=== PATIENT | male | born 1950 | race Caucasian/White ===

== ENCOUNTER 2016-06-21 10:55 | Inpatient (IN) | payer OTHER ==
[~2016-06-21] VITALS: Ht 180.3 cm; Wt 123.5 kg
[2016-06-21] MEDS ORDERED: ATORVASTATIN CA80 MG PO (11:17)
[2016-06-21] MEDS ORDERED: DILTIAZEM 24HR360 M1 PO (11:18)
[2016-06-21] MEDS ORDERED: WARFARIN SODIUM5 MG PO (11:19)
[2016-06-21] MEDS ORDERED: LISINOPRIL20 MG PO (11:19)
[2016-06-21] MEDS ORDERED: ULORIC80 MG PO (11:19)
[2016-06-21] MEDS ORDERED: SPIRIVA1 INHALATI IH (11:20)
[2016-06-21] MEDS ORDERED: POTASSIUM CHLO20 ME1 PO (11:20)
[2016-06-21] MEDS ORDERED: ADVAIR 500/501 DISK IH ×2 (11:20→11:22)
[2016-06-21 11:49] LABS: EOSINOPHIL (%) 0.8 % (0-5); HEMATOCRIT 33.9 % (38.0-50.0); IMMATURE GRANULOCYTE (%) 0.4 % (0.0-0.7); INSTRUMENT ABS NEUTROPHIL CT 4.2 K/uL; LYMPHOCYTE COUNT 0.3 K/uL (1.0-2.8); MCH 30.9 PG (29.0-34.0); MCHC 31.3 G/DL (30.0-36.0); MCV 98.8 FL (86-99); MEAN PLAT.VOLUME 9.7 uM^3 (9.0-12.4); MONOCYTE (%) 8.2 % (3-12); MONOCYTE COUNT 0.4 K/uL (0-0.8); NEUTROPHIL (%) 84.4 % (45-76); NEUTROPHIL COUNT 4.2 K/uL (1.8-6.4); PLATELET COUNT 127 K/uL (156-360); RBC DIS.WIDTH-CV 15.4 % (11.8-14.6); RBC DIS.WIDTH-SD 55.8 % (39-53); RED BLOOD COUNT 3.43 M/uL (4.00-5.50)
[2016-06-21 11:59] LABS: CHLORIDE 99 mEq/L (99-109); POTASSIUM 4.7 mEq/L (3.7-5.4); SODIUM 141 mEq/L (136-147)
[2016-06-21 12:01] LABS: GLUCOSE 129 mg/dL (70-99)
[2016-06-21 12:02] LABS: ANION GAP 10 MEQ/L (2-14)
[2016-06-21 12:05] LABS: ALKALINE PHOSPHATASE 59 IU/L (3-129); GFR ESTIMATE (CALCULATED) 54 mL/min/
[2016-06-21 12:06] LABS: UREA NITROGEN (BUN) 46 mg/dL (9-23)
[2016-06-21 12:11] LABS: TROP-I INTERPRETATION NEGATIVE; TROPONIN-I 0.01 ng/mL (0.0-0.30)
[2016-06-21 16:15] VITALS: BP 149/88
[2016-06-21 16:35] LABS: HDL CHOLESTEROL 80 MG/DL (Desirable>=40); LDL CHOLESTEROL 92 mg/dL (Desirable<100); MAGNESIUM 1.2 mg/dl (1.3-2.7); NON-HDL CHOLESTEROL 132 mg/dL (Desirable<160); TOTAL CHOLESTEROL 212 mg/dL (Desirable<200); TRIGLYCERIDES 200 MG/DL (Normal: <150)
[2016-06-21 16:42] LABS: INTER. NORMALIZED RATIO 3.1; PROTHROMBIN TIME 32.8 (9.2-11.2)
[2016-06-21 21:30] VITALS: BP 140/78
[2016-06-22] VITALS (7 sets, daily range): BP systolic 97–145; BP diastolic 46–93
[2016-06-22 06:27] LABS: HEMATOCRIT 30.3 % (38.0-50.0); MCH 31.1 PG (29.0-34.0); MCHC 31.4 G/DL (30.0-36.0); MCV 99.3 FL (86-99); MEAN PLAT.VOLUME 10.1 uM^3 (9.0-12.4); PLATELET COUNT 123 K/uL (156-360); RBC DIS.WIDTH-CV 15.1 % (11.8-14.6); RBC DIS.WIDTH-SD 54.6 % (39-53); RED BLOOD COUNT 3.05 M/uL (4.00-5.50); WHITE BLOOD COUNT 4.3 K/uL (4.1-10.2)
[2016-06-22 06:40] LABS: INTER. NORMALIZED RATIO 2.4; PROTHROMBIN TIME 25.4 (9.2-11.2)
[2016-06-22 06:51] LABS: ALKALINE PHOSPHATASE 49 IU/L (3-129); ANION GAP 10 MEQ/L (2-14); CHLORIDE 98 MEQ/L (99-109); GFR ESTIMATE (CALCULATED) 43 mL/min/; SAMPLE HEMOLYSIS CHECK 0; SAMPLE ICTERIC CHECK 0; SAMPLE LIPEMIA CHECK 0; SODIUM 140 MEQ/L (136-147); TOTAL BILIRUBIN 0.5 MG/DL (0.0-1.0); UREA NITROGEN (BUN) 52 mg/dL (9-23)
[2016-06-22 06:52] LABS: GLUCOSE 227 mg/dL (70-99)
[2016-06-22] MEDS ORDERED: COUMADIN5 MG PO (11:59)
[2016-06-22] MEDS ORDERED: COUMADIN2.5 MG PO (11:59)
[2016-06-22] MEDS ORDERED: LASIX40 MG PO (12:00)
[2016-06-22] MEDS ORDERED: PROVENTIL,2.5 MG/3 M IH (12:00)
[2016-06-22] MEDS ORDERED: VENTOLIN HFA18 GM IH (12:00)
[2016-06-22] MEDS ORDERED: ALEVE220 MG PO (12:01)
[2016-06-22 16:59] LABS: BASE EXCESS 4.3 mEq/L (-3 to +3); BICARBONATE 30.2 mEq/L (22-26); CARBOXY HGB 0.4 % (0-5); DEVICE NC; METHEMOGLOBIN 0.8 % (0-1.5); O2 FLOW 3 L/MIN; PCO2 51 mm Hg (35-45); PO2 88 mm Hg (80-100); SITE RB; TOTAL RESP RATE 18 resp/min; pH 7.38 (7.35-7.45)
[2016-06-22 22:32] LABS: UR CREATININE CONCENTRATION 162.8 MG/DL
[2016-06-23] VITALS (8 sets, daily range): BP systolic 101–150; BP diastolic 55–76
[2016-06-23 07:28] LABS: INTER. NORMALIZED RATIO 2.3; PROTHROMBIN TIME 24.1 (9.2-11.2)
[2016-06-23 07:31] LABS: ANION GAP 10 MEQ/L (2-14); CHLORIDE 98 MEQ/L (99-109); GFR ESTIMATE (CALCULATED) 34 mL/min/; GLUCOSE 245 mg/dL (70-99); GLUCOSE 246 mg/dL (70-99); POTASSIUM 4.9 MEQ/L (3.7-5.4); SAMPLE HEMOLYSIS CHECK 0; SAMPLE ICTERIC CHECK 0; SAMPLE LIPEMIA CHECK 0; SODIUM 138 MEQ/L (136-147); UREA NITROGEN (BUN) 68 mg/dL (9-23); UREA NITROGEN (BUN) 69 mg/dL (9-23)
[2016-06-23 07:32] LABS: EOSINOPHIL (%) 0 % (0-5); HEMATOCRIT 28.8 % (38.0-50.0); IMMATURE GRANULOCYTE (%) 0.8 % (0.0-0.7); IMMATURE GRANULOCYTE COUNT 0.1 K/uL; INSTRUMENT ABS NEUTROPHIL CT 9.4 K/uL; LYMPHOCYTE COUNT 0.1 K/uL (1.0-2.8); MCHC 30.9 G/DL (30.0-36.0); MCV 100.3 FL (86-99); MEAN PLAT.VOLUME 10.5 uM^3 (9.0-12.4); MONOCYTE (%) 1.5 % (3-12); MONOCYTE COUNT 0.2 K/uL (0-0.8); NEUTROPHIL (%) 96.5 % (45-76); NEUTROPHIL COUNT 9.4 K/uL (1.8-6.4); PLATELET COUNT 134 K/uL (156-360); RBC DIS.WIDTH-SD 55.7 % (39-53); RED BLOOD COUNT 2.87 M/uL (4.00-5.50)
[2016-06-23 07:42] LABS: WHITE BLOOD COUNT 9.7 K/uL (4.1-10.2)
[2016-06-24 03:48] VITALS: BP 106/62
[2016-06-24 04:48] LABS: EOSINOPHIL (%) 0 % (0-5); HEMATOCRIT 30.4 % (38.0-50.0); IMM.RETIC FRACTION 14.1 % (3-19); IMMATURE GRANULOCYTE (%) 0.7 % (0.0-0.7); IMMATURE GRANULOCYTE COUNT 0.1 K/uL; LYMPHOCYTE COUNT 0.1 K/uL (1.0-2.8); MCH 30.6 PG (29.0-34.0); MCHC 30.6 G/DL (30.0-36.0); MEAN PLAT.VOLUME 9.7 uM^3 (9.0-12.4); MONOCYTE (%) 1.8 % (3-12); MONOCYTE COUNT 0.2 K/uL (0-0.8); NEUTROPHIL (%) 96.6 % (45-76); PLATELET COUNT 139 K/uL (156-360); RBC DIS.WIDTH-CV 15.3 % (11.8-14.6); RBC DIS.WIDTH-SD 55.8 % (39-53); RED BLOOD COUNT 3.04 M/uL (4.00-5.50); RETIC HGB EQUIVALENT 34.6 (28-36); RETICULOCYTE COUNT 1.9 % (0.5-1.8); WHITE BLOOD COUNT 11.4 K/uL (4.1-10.2)
[2016-06-24 04:58] LABS: INTER. NORMALIZED RATIO 2.3; PROTHROMBIN TIME 24.3 (9.2-11.2)
[2016-06-24 05:03] LABS: CHLORIDE 97 mEq/L (99-109); POTASSIUM 5.1 mEq/L (3.7-5.4); SODIUM 135 mEq/L (136-147)
[2016-06-24 05:06] LABS: GLUCOSE 338 mg/dL (70-99)
[2016-06-24 05:07] LABS: ANION GAP 11 MEQ/L (2-14)
[2016-06-24 05:09] LABS: ALKALINE PHOSPHATASE 39 IU/L (3-129)
[2016-06-24 05:10] LABS: UREA NITROGEN (BUN) 95 mg/dL (9-23)
[2016-06-24 05:13] LABS: GFR ESTIMATE (CALCULATED) 25 mL/min/; TOTAL BILIRUBIN 0.3 mg/dL (0.0-1.0)
[2016-06-24 05:23] LABS: ADD MIUA? NO; BILIRUBIN NEGATIVE; BLOOD NEGATIVE; COLOR YELLOW ((YELLOW)); GLUCOSE (STRIP) NEGATIVE; KETONES NEGATIVE; LEUKOCYTES NEGATIVE; NITRITE NEGATIVE; PROTEIN (STRIP) NEGATIVE; SPECIFIC GRAVITY 1.013 (1.000-1.030); UCUL ADDED? NO; UROBILINOGEN 0.2 MG/DL (0.2-1.0)
[2016-06-24 06:08] LABS: IRON 45 MCG/DL (35-150)
[2016-06-24 07:13] LABS: Estimated Average Glucose 146 mg/dL (70-123); HEMOGLOBIN A1c (GLYCOHEMOGLOB) 6.7 % HGB (Below 5.7)
[2016-06-24 07:46] LABS: INTACT PARATHYROID HORMONE 185 pg/mL (10-69)
[2016-06-24 08:02] LABS: FERRITIN 287 NG/ML (22-322)
[2016-06-24 08:52] VITALS: BP 97/65
[2016-06-24 12:40] VITALS: BP 101/66
[2016-06-24 17:05] LABS: GLUCOSE 384 mg/dL (70-99)
[2016-06-24 17:22] VITALS: BP 121/61
[2016-06-24 20:20] VITALS: BP 123/74
[2016-06-24 23:07] VITALS: BP 119/66
[2016-06-25 03:02] VITALS: BP 154/81
[2016-06-25 06:40] LABS: EOSINOPHIL (%) 0 % (0-5); HEMATOCRIT 30.9 % (38.0-50.0); IMMATURE GRANULOCYTE (%) 1.4 % (0.0-0.7); IMMATURE GRANULOCYTE COUNT 0.2 K/uL; INSTRUMENT ABS NEUTROPHIL CT 9.9 K/uL; LYMPHOCYTE COUNT 0.2 K/uL (1.0-2.8); MCH 31.5 PG (29.0-34.0); MCHC 31.4 G/DL (30.0-36.0); MCV 100.3 FL (86-99); MEAN PLAT.VOLUME 9.8 uM^3 (9.0-12.4); MONOCYTE COUNT 0.7 K/uL (0-0.8); NEUTROPHIL COUNT 9.9 K/uL (1.8-6.4); PLATELET COUNT 144 K/uL (156-360); RBC DIS.WIDTH-CV 15.4 % (11.8-14.6); RBC DIS.WIDTH-SD 56.6 % (39-53); RED BLOOD COUNT 3.08 M/uL (4.00-5.50); WHITE BLOOD COUNT 10.9 K/uL (4.1-10.2)
[2016-06-25 06:49] LABS: INTER. NORMALIZED RATIO 2.5; PROTHROMBIN TIME 25.9 (9.2-11.2)
[2016-06-25 07:16] LABS: ANION GAP 9 MEQ/L (2-14); CHLORIDE 97 MEQ/L (99-109); GFR ESTIMATE (CALCULATED) 25 mL/min/; GLUCOSE 296 mg/dL (70-99); POTASSIUM 5.4 MEQ/L (3.7-5.4); SAMPLE HEMOLYSIS CHECK 0; SAMPLE ICTERIC CHECK 0; SAMPLE LIPEMIA CHECK 0; SODIUM 136 MEQ/L (136-147)
[2016-06-25 07:17] LABS: UREA NITROGEN (BUN) 106 mg/dL (9-23)
[2016-06-25 07:50] VITALS: BP 123/72
[2016-06-25 08:49] LABS: BASE EXCESS 2.4 mEq/L (-3 to +3); BICARBONATE 31.1 mEq/L (22-26); CARBOXY HGB 0.6 % (0-5); METHEMOGLOBIN 0.7 % (0-1.5); PO2 85 mm Hg (80-100)
[2016-06-25 08:50] LABS: COMMENTS - BLOOD GASES A+C+; DEVICE NC; O2 FLOW 2.5 L/MIN; PCO2 71 mm Hg (35-45); SITE RR; pH 7.25 (7.35-7.45)
[2016-06-25 11:01] VITALS: BP 117/64
[2016-06-25 12:04] LABS: BICARBONATE 30.8 mEq/L (22-26); CARBOXY HGB 0.9 % (0-5); COMMENTS - BLOOD GASES A+C+; DEVICE NC; METHEMOGLOBIN 0.8 % (0-1.5); O2 FLOW 1 L/MIN; PCO2 64 mm Hg (35-45); PO2 67 mm Hg (80-100); SITE RR; pH 7.29 (7.35-7.45)
[2016-06-25 13:23] LABS: POINT-OF-CARE METER ID UU14162508
[2016-06-25 14:41] VITALS: BP 114/61
[2016-06-25 19:56] VITALS: BP 124/77
[2016-06-25 23:09] LABS: POINT-OF-CARE METER ID UU14174216
[2016-06-25 23:18] VITALS: BP 117/72
[2016-06-26 04:18] VITALS: BP 116/83
[2016-06-26 05:56] LABS: INTER. NORMALIZED RATIO 2.5; PROTHROMBIN TIME 26.4 (9.2-11.2)
[2016-06-26 06:17] LABS: ANION GAP 7 MEQ/L (2-14); CHLORIDE 103 MEQ/L (99-109); GFR ESTIMATE (CALCULATED) 34 mL/min/; GLUCOSE 206 mg/dL (70-99); POTASSIUM 5.3 MEQ/L (3.7-5.4); SAMPLE HEMOLYSIS CHECK 0; SAMPLE ICTERIC CHECK 0; SAMPLE LIPEMIA CHECK 0; SODIUM 139 MEQ/L (136-147)
[2016-06-26 06:18] LABS: UREA NITROGEN (BUN) 106 mg/dL (9-23)
[2016-06-26 08:03] VITALS: BP 145/64
[2016-06-26 10:15] LABS: BASE EXCESS 1.3 mEq/L (-3 to +3); BICARBONATE 28.9 mEq/L (22-26); PCO2 60 mm Hg (35-45); PO2 80 mm Hg (80-100)
[2016-06-26 10:16] LABS: pH 7.29 (7.35-7.45)
[2016-06-26 10:18] LABS: COMMENTS - BLOOD GASES A+C+; DEVICE NC; O2 FLOW 1 L/MIN; SITE RRA; TOTAL RESP RATE 16 resp/min
[2016-06-26 11:26] VITALS: BP 127/80
[2016-06-26 15:19] LABS: BASE EXCESS 3.6 mEq/L (-3 to +3); BICARBONATE 30.6 mEq/L (22-26); CARBOXY HGB 0.9 % (0-5); METHEMOGLOBIN 1.2 % (0-1.5); PCO2 58 mm Hg (35-45); PO2 76 mm Hg (80-100); pH 7.33 (7.35-7.45)
[2016-06-26 15:20] LABS: COMMENTS - BLOOD GASES A+C+; DEVICE NC; O2 FLOW 1 L/MIN; SITE RR; TOTAL RESP RATE 20 resp/min
[2016-06-26 15:28] VITALS: BP 138/82
[2016-06-26 19:06] VITALS: BP 138/83
[2016-06-26 21:38] LABS: POINT-OF-CARE METER ID UU14174216; POINT-OF-CARE USER ID ENVMNS
[2016-06-26 23:10] VITALS: BP 129/79
[2016-06-27] VITALS (7 sets, daily range): BP systolic 133–187; BP diastolic 77–97
[2016-06-27 06:50] LABS: HEMATOCRIT 31.7 % (38.0-50.0); MCH 31.4 PG (29.0-34.0); MCHC 31.9 G/DL (30.0-36.0); MCV 98.4 FL (86-99); PLATELET COUNT 148 K/uL (156-360); RBC DIS.WIDTH-CV 15.1 % (11.8-14.6); RBC DIS.WIDTH-SD 53.9 % (39-53); RED BLOOD COUNT 3.22 M/uL (4.00-5.50)
[2016-06-27 06:53] LABS: WHITE BLOOD COUNT 7.3 K/uL (4.1-10.2)
[2016-06-27 06:58] LABS: INTER. NORMALIZED RATIO 2.2; PROTHROMBIN TIME 22.5 (9.2-11.2)
[2016-06-27 07:07] LABS: ANION GAP 6 MEQ/L (2-14); CHLORIDE 103 MEQ/L (99-109); GFR ESTIMATE (CALCULATED) 40 mL/min/; GLUCOSE 173 mg/dL (70-99); POTASSIUM 5.4 MEQ/L (3.7-5.4); SAMPLE HEMOLYSIS CHECK 0; SAMPLE ICTERIC CHECK 0; SAMPLE LIPEMIA CHECK 0; SODIUM 140 MEQ/L (136-147); UREA NITROGEN (BUN) 91 mg/dL (9-23)
[2016-06-27 07:08] LABS: ANION GAP 7 MEQ/L (2-14); CHLORIDE 105 MEQ/L (99-109); GFR ESTIMATE (CALCULATED) 40 mL/min/; GLUCOSE 167 mg/dL (70-99); POTASSIUM 5.5 MEQ/L (3.7-5.4); SAMPLE HEMOLYSIS CHECK 0; SAMPLE ICTERIC CHECK 0; SAMPLE LIPEMIA CHECK 0; SODIUM 142 MEQ/L (136-147); UREA NITROGEN (BUN) 90 mg/dL (9-23)
[2016-06-27 07:29] LABS: POINT-OF-CARE METER ID UU14174216
[2016-06-27 11:25] LABS: POINT-OF-CARE METER ID UU14174216
[2016-06-27 21:31] LABS: POINT-OF-CARE METER ID UU14174216; POINT-OF-CARE USER ID ENVMNS
[2016-06-28 04:05] VITALS: BP 174/81
[2016-06-28 05:56] LABS: HEMATOCRIT 32.7 % (38.0-50.0); MCHC 31.5 G/DL (30.0-36.0); MCV 98.5 FL (86-99); PLATELET COUNT 154 K/uL (156-360); RBC DIS.WIDTH-CV 15.2 % (11.8-14.6); RBC DIS.WIDTH-SD 54.9 % (39-53); RED BLOOD COUNT 3.32 M/uL (4.00-5.50); WHITE BLOOD COUNT 6.7 K/uL (4.1-10.2)
[2016-06-28 06:26] LABS: ANION GAP 6 MEQ/L (2-14); CHLORIDE 103 MEQ/L (99-109); GFR ESTIMATE (CALCULATED) 50 mL/min/; POTASSIUM 4.7 MEQ/L (3.7-5.4); SAMPLE HEMOLYSIS CHECK 0; SAMPLE ICTERIC CHECK 0; SAMPLE LIPEMIA CHECK 0; SODIUM 140 MEQ/L (136-147); UREA NITROGEN (BUN) 73 mg/dL (9-23)
[2016-06-28 06:31] LABS: GLUCOSE 85 mg/dL (70-99); MAGNESIUM 2.1 mg/dl (1.3-2.7)
[2016-06-28 06:38] LABS: PROTHROMBIN TIME 20.7 (9.2-11.2)
[2016-06-28 08:05] VITALS: BP 153/82
[2016-06-28 08:05] LABS: POINT-OF-CARE METER ID UU13113807
[2016-06-28] MEDS ORDERED: Thiamine,Vitamin B1 PO (11:05)
[2016-06-28] MEDS ORDERED: PREDNISONE20 MG PO (11:05)
[2016-06-28] MEDS ORDERED: MUCINEX600 MG PO (11:05)
[2016-06-28] MEDS ORDERED: LOPRESSOR25 MG PO (11:05)
[2016-06-28] MEDS ORDERED: FOLIC ACID1 MG PO (11:05)
[2016-06-28] MEDS ORDERED: LEVOFLOXACIN750 MG PO (11:05)
[2016-06-28] MEDS ORDERED: THERAGRAN1 TABLET PO (11:05)
[2016-06-28 12:33] LABS: POINT-OF-CARE METER ID UU13113807
== END 2016-06-28 13:05 | disposition home or self-care (01) | DRG 190 ==
LOC: EME 10:55 → 2EAST 13:53 → 4EAST 13:53 → EDOF 13:53 → 4EAST 15:50 → 2EAST 06-22 18:21 → 4EAST 06-25 14:36 → 4SOUTH 06-27 23:23
PROVIDERS: Emergency Medicine; Hospitalist; Internal Medicine; Internal Medicine Nephrology; Internal Medicine Pulmonary Disease; Student in an Organized Health Care Education/Training Program
PROC: 5A09357 Assistance with Respiratory Ventilation, Less than 24 Consecutive Hours, Continuous Positive Airway Pressure (ICD-10-PCS; principal; 2016-06-26)
DX: J44.0 Chronic obstructive pulmonary disease with (acute) lower respiratory infection (principal); J96.21 Acute and chronic respiratory failure with hypoxia; I50.30 Unspecified diastolic (congestive) heart failure; I42.9 Cardiomyopathy, unspecified; N17.9 Acute kidney failure, unspecified; I13.0 Hypertensive heart and chronic kidney disease with heart failure and stage 1 through stage 4 chronic kidney disease, or unspecified chronic kidney disease; E87.2 Acidosis; J98.11 Atelectasis; J20.9 Acute bronchitis, unspecified; I48.2 Chronic atrial fibrillation; L89.322 Pressure ulcer of left buttock, stage 2; L89.312 Pressure ulcer of right buttock, stage 2; I27.2 Other secondary pulmonary hypertension; G47.33 Obstructive sleep apnea (adult) (pediatric); E66.9 Obesity, unspecified; E83.42 Hypomagnesemia; M10.9 Gout, unspecified; R73.9 Hyperglycemia, unspecified; D64.9 Anemia, unspecified; I34.0 Nonrheumatic mitral (valve) insufficiency; F10.10 Alcohol abuse, uncomplicated; Z96.651 Presence of right artificial knee joint; J84.10 Pulmonary fibrosis, unspecified; I87.2 Venous insufficiency (chronic) (peripheral); N18.9 Chronic kidney disease, unspecified; E78.5 Hyperlipidemia, unspecified; Z68.38 Body mass index [BMI] 38.0-38.9, adult; Z99.81 Dependence on supplemental oxygen; Z87.891 Personal history of nicotine dependence; Z83.6 Family history of other diseases of the respiratory system
CPT/HCPCS: 36600; 71020; 71275; 76770; 80048; 80048 91; 80053; 80061; 80069; 81003; 82306; 82570; 82607; 82728; 82746; 82803; 82948; 83036; 83540; 83605; 83735; 83880; 83970; 84100; 84156; 84466; 84484; 84550; 84999; 85025; 85027; 85045; 85610; 87070; 87205; 93005; 93306; 94640; 94640 76; 94660; 94760; 94799; 99202; 99281; 99285; J0360; J0692; J0696; J1815; J1940; J2930; J3475; J7030; J7040; J7050; J7512